=== PATIENT | female | born 1990 | race Caucasian/White ===

== ENCOUNTER 2018-01-14 09:47 | Day surgery (SDC) | payer OTHER ==
[2018-01-14 11:00] LABS: #Basophils 0.1 thou/uL (0.0-0.2); #Lymphocytes 1.2 thou/uL (1.20-3.40); #Monocytes 0.5 thou/uL (0.11-0.59); #Neutrophils 4.2 thou/uL (1.40-6.50); %Basophils 0.9 % (0.0-1.0); %Eosinophils 0.4 % (0.0-10.0); %Monocytes 8.6 % (0.0-10.0); %Neutrophils 70.2 % (42.0-75.0); Hemoglobin 11.4 g/dL (12.0-16.0); Mean Corpuscular HGB CONC 34.3 g/dL (32.0-36.0); Mean Corpuscular Hemoglobin 29.9 pg (27.0-31.0); Mean Corpuscular Volume 87.3 fl (81.0-99.0); Mean Platelet Volume 6.9 fL (7.4-10.4); Platelet Count 213 thou/uL (130-400); RBC Distribution Width 11.4 % (11.5-14.5); Red Blood Cell (RBC) Count 3.81 mill/uL (4.20-5.40); White Blood Cell (WBC) Count 5.9 thou/uL (4.8-10.8)
[2018-01-14 11:20] LABS: ALT (SGPT) 12 U/L (8-55); AST (SGOT) 11 U/L (5-34); Albumin 4.3 g/dL (3.5-5.0); Alkaline Phosphatase 54 U/L (40-150); Anion Gap 12 mmol/L (10-20); BUN (Urea Nitrogen) 13 mg/dL (7.0-18.7); Bilirubin, Total 0.6 mg/dL (0.2-1.2); Calc. Creatinine Clearance 0 mL/min (70-130); Calcium 9.5 mg/dL (7.8-10.44); Carbon Dioxide 24 mmol/L (22-29); Chloride 105 mmol/L (98-107); Estimated GFR-MDRD Greater than 90; Globulin 2.8 g/dL (2.4-3.5); Glucose 109 mg/dL (70-105); Potassium 3.6 mmol/L (3.5-5.1); Protein, Total 7.1 g/dL (6.0-8.3); Sodium 137 mmol/L (136-145)
[2018-01-14] MEDS ORDERED: CEFAZOLIN/Water 2 GM/20 ML SYRINGE ONE (11:35)
[2018-01-14] MEDS ORDERED: Bupivacaine HCl 0.5%/Epinephrine 1:200,000/PF 30 ml Vial ONE (13:27)
[2018-01-14] MEDS ORDERED: Midazolam HCl 2 mg/2 ml Vial ONE (13:30)
[2018-01-14] MEDS ORDERED: Fentanyl 250 MCG/5 ML VIAL ONE (13:30)
--- NOTE | 2018-01-14 14:04 | HP ---
DATE OF ADMISSION: 01/14/2018 REASON FOR ADMISSION: Ruptured left ectopic . HISTORY OF PRESENT ILLNESS: Ms. Peterson is a 28-year-old 3, para 2, AB 0, ectopic now 1, who w as first seen in early December with a positive UCG after an IUD removal in 2015. Ultrasound revealed a bsence of intrauterine and a left adnexal mass measuring 2.73 in greatest diameter with a g estational sac. There were no FHTs. Initial beta hCG was 14,800. The patient received 50 mg of met hotrexate per meter square on both 12/31/2017 and on 01/07/2018. She received this because her beta hCG increased to 20,700 on the and was only down to 17,700 on the . However, her beta hCG o n the was down to 9900 and the patient was not experiencing any pain. Over the past 10-12 hours , she is experience increasing left lower quadrant pain, abdominal distention and now complains of ri ght shoulder pain when lying flat. She denies nausea, vomiting. She denies syncope, dizziness or we akness. OBSTETRIC AND GYNECOLOGIC HISTORY: Primary for breech presentation in 2012 and of 9 p ound 12 ounce in 05/2015. Blood type is A positive. Negative pap. No history of STDs. PAST MEDICAL HISTORY: None. PAST SURGICAL HISTORY: . ALLERGIES: None. MEDICATIONS: None. SOCIAL HISTORY: Denies tobacco, alcohol, or drug use. FAMILY HISTORY: Noncontributory. REVIEW OF SYSTEMS: Noncontributory. PHYSICAL EXAMINATION: GENERAL: White female in no acute distress, but in obvious pain. VITAL SIGNS: Blood pressure 112/68, pulse 90, respirations 18, temperature 98.5, BMI 21. HEENT: Within normal limits. LUNGS: Clear to auscultation bilaterally. HEART: Regular rate and rhythm. ABDOMEN: Shows discomfort in all 4 quadrants, more so with the left lower quadrant. She has no dist inguishable fluid wave and no CVA tenderness. PELVIC: Vulva is without lesions. Vagina without discharge. Cervix is parous. Uterus is anteverte d and small. Bimanual exam reveals tender left adnexa. LABORATORY DATA AND X-RAY FINDINGS: Ultrasound reveals free fluid in the cul-de-sac of Vinicius and i n the areas of both the right and left adnexa. Previous ultrasound clearly revealed ectopic pregnanc y and left adnexa. IMPRESSION: Ruptured left ectopic with hemoperitoneum, stable hemodynamically at this poin t in time. Status post methotrexate at 50 mg per meter squared x2 doses. PLAN: We will admit the patient on outpatient basis to [facility] and proceed with laparoscopic left salpingectomy and evacuation of ectopic . We will administer appropriate antibiotic and DV T prophylaxis.
[2018-01-14] MEDS ORDERED: Fentanyl 100 MCG/2 ML VIAL ONE (15:13)
--- NOTE | 2018-01-14 15:23 | OP ---
DATE OF PROCEDURE: 01/14/2018 PREOPERATIVE DIAGNOSIS: Hemoperitoneum with left ectopic . POSTOPERATIVE DIAGNOSIS: Hemoperitoneum with left ectopic . PROCEDURE: Laparoscopic left distal salpingectomy. SURGEON: Cesar Lundy M.D. ANESTHESIA: General endotracheal, Arnol Burden M.D. MEDICATIONS: Two grams Ancef preincision. DVT PROPHYLAXIS: SCDs. DRAINS: Rojas to gravity. OPERATIVE FINDINGS: 1. Ruptured distal 3-4 cm left ectopic . 2. Approximately 400-500 mL hemoperitoneum. 3. Normal appearing right tube and ovary. 4. Hemostasis, clear urine, counts correct at the end of the procedure. DISPOSITION: To the recovery room in good condition. DESCRIPTION OF OPERATIVE PROCEDURE: After obtaining proper informed consent, the patient was taken t o the operating room where general endotracheal anesthesia was achieved without difficulty. Patient prepped and draped in dorsal lithotomy position in Giuliano stirrups. Weighted speculum placed in vagin a, cervix identified, grasped with single tooth tenaculum at 12 o'clock. The [employer] manipulator place d inside. Rojas catheter placed. Tenaculum and speculum removed. Paraffiner changed gloves and turne d attention to abdominal portion of procedure. Five mL of Marcaine injected at the base of umbilicus and a 10 mm skin incision made. Freeze needle placed inside abdominal cavity and confirmation entry into the peritoneal cavity via saline drop test. Insufflation was carried out with carbon dioxide m ax pressure 15. Once this was done, an 10 mm trocar was placed through the umbilicus. Confirmation entry into the peritoneal cavity was noted without trauma to the underlying viscera. Five mL of Liam bibi was injected lateral to the epigastric vessels bilaterally and 5 mm trocars placed approximately 2 cm below the level of the umbilicus. The patient was placed in steep Trendelenburg position and f indings noted the operative findings were noted. Hemoperitoneum was evacuated. Distal ectopic pregn lyubov with a distal bleeding was noted. It was elevated by grasping the fallopian tube along the anti mesenteric border using the LigaSure coagulation and transection across the fallopian tube at approxi mately its midpoint and then across the mesosalpinx underneath the distal aspect of it involving the ectopic was carried out. Once this was completed, the specimen was placed in the cul-de-sa c of Vinicius for retrieval. Suction irrigation was carried out of the surgical field and no bleeding along the mesosalpinx was noted. Ovaries noted to be normal. Right ovary and tube were inspected a nd noted to be normal. Photodocumentation of all obtained. Laparoscope was moved over to the patien t's right side and the 10 mm retrieval bag placed in the umbilical trocar. The specimen was placed i nto the retrieval bag and it was pulled up to the surface, removing the trocar. The specimen was ret rieved from the retrieval bag and the retrieval bag removed. Trocar closure set with GraNee needle a nd 0 Vicryl suture was used to reapproximate the fascia at the level of umbilicus. Abdomen was desuf flated of carbon dioxide. The other two trocars removed. Skin reapproximated x3 with a 4-0 Monocryl and Dermabond. Hulka manipulator removed. Rojas catheter removed. Patient awakened, extubated, an d taken to recovery in good condition.
[2018-01-14] MEDS ORDERED: HYDROcodone/Acetaminophen 5/325 mg Tablet ONE (17:09)
== END 2018-01-14 18:46 | disposition home or self-care (01) ==
LOC: SDC 09:47
PROVIDERS: ATTEND Obstetrics & Gynecology
PROC: 10T24ZZ Resection of Products of Conception, Ectopic, Percutaneous Endoscopic Approach (ICD-10-PCS; principal; 2018-01-14)
PROC: 0UT64ZZ Resection of Left Fallopian Tube, Percutaneous Endoscopic Approach (ICD-10-PCS; principal; 2018-01-14)
DX: O00.102 Left tubal pregnancy without intrauterine pregnancy (principal); O08.1 Delayed or excessive hemorrhage following ectopic and molar pregnancy; K66.1 Hemoperitoneum; Z79.899 Other long term (current) drug therapy; Z88.6 Allergy status to analgesic agent; Z98.891 History of uterine scar from previous surgery
CPT/HCPCS: 36415; 80053; 85025; 86850; 86900; 86901; 88305; J0131; J0670; J2250; J3010

== ENCOUNTER 2019-08-17 19:15 | Inpatient (IN) | payer BC ==
[2019-08-18] MEDS ORDERED: Promethazine HCl 25 MG/ML VIAL IM PRN ×3 (01:43→09:38)
[2019-08-18] MEDS ORDERED: HYDROcodone/Acetaminophen 5/325 mg Tablet PO PRN ×3 (01:43→09:38)
[2019-08-18] MEDS ORDERED: Lidocaine 1% (PF) 30 ML VIAL SC PRN (01:43)
[2019-08-18] MEDS ORDERED: Butorphanol Tartrate 1 MG/ML VIAL SLOW IVP PRN (01:43)
[2019-08-18] MEDS ORDERED: hydrALAZINE 20 MG/ML VIAL SLOW IVP PRN ×2 (01:43→09:38)
[2019-08-18] MEDS ORDERED: Ondansetron PF 4 MG/2 ML Vial IVP PRN ×3 (01:43→09:38)
[2019-08-18] MEDS ORDERED: NS / Oxytocin 40 units/1000ml 1,000 ML IV PRN (01:43)
[2019-08-18 01:47] VITALS: BMI 27.0
[2019-08-18] MEDS ORDERED: Lactated Ringer's 1,000 ML IV SCH ×2 (02:00→03:00)
[2019-08-18] MEDS ORDERED: NS w/ Oxytocin 10 units 500 ML IV SCH (02:00)
[2019-08-18 02:26] LABS: Mean Corpuscular HGB CONC 34.7 g/dL (32.0-36.0); Mean Corpuscular Hemoglobin 30.1 pg (27.0-31.0); Mean Corpuscular Volume 86.7 fL (78.0-98.0); Mean Platelet Volume 7.5 fL (7.4-10.4); Platelet Count 178 thou/uL (130-400); RBC Distribution Width 12.3 % (11.5-14.5); White Blood Cell (WBC) Count 8.5 thou/uL (4.8-10.8)
[2019-08-18] MEDS ORDERED: Fentanyl 4 mcg/Bup 0.1% Cadd 100 ML ONE (02:53)
[2019-08-18 03:04] LABS: HBSAg Index 0.33 S/CO (0-0.99); Hep B Surf Ag Non-Reactive S/CO (NonReactive)
[2019-08-18] MEDS ORDERED: Bupivacaine 0.5% 10 ML VIAL ONE (03:15)
[2019-08-18] MEDS ORDERED: Fentanyl 100 MCG/2 ML VIAL ONE (03:15)
[2019-08-18] MEDS ORDERED: Acetaminophen 325 MG TAB PO PRN (03:48)
[2019-08-18] MEDS ORDERED: Lactated Ringer's 500 ML IV PRN (03:48)
[2019-08-18] MEDS ORDERED: Naloxone HCl 0.4 mg/ml Vial IVP PRN ×2 (03:48)
[2019-08-18] MEDS ORDERED: diphenhydrAMINE 50 MG/ML VIAL IVP PRN (03:48)
[2019-08-18] MEDS ORDERED: ePHEDrine/0.9% NaCl/PF SYRINGE 50 mg/10 ml SLOW IVP PRN (03:48)
[2019-08-18] MEDS ORDERED: Fentanyl 4 mcg/Bupivacaine 0.1% Cassette 100 ML EPIDURAL SCH (04:00)
[2019-08-18] MEDS ORDERED: Communication Order-Pharmacy FS SCH (04:00)
[2019-08-18] MEDS ORDERED: Bupivacaine 0.25% 10 ML VIAL EPIDURAL SCH (04:05)
[2019-08-18] MEDS ORDERED: Fentanyl 100 MCG/2 ML VIAL I-THECAL SCH (04:05)
--- NOTE | 2019-08-18 05:20 | PDOC.OPDEL ---
OB Operative/Delivery Note Delivery Dr/Surgeon: Preston Pre-Delivery Diagnosis: active labor Procedure/Post Delivery Dx: vaginal delivery after CS Weeks gestation: 40 Anesthesia: epidural - Additional Findings/Plan Placenta delivered: spontaneous Repaired Obstetrical Laceration: 2nd degree Estimated blood loss: 300 cc Compilations/Other Findings: Rapid progress with precip delivery of viable female. Apgars 9/9. 2* MLE repaired in layers. To recover in L&D. Post delivery plan: routine recovery
[2019-08-18 05:52] LABS: Syphilis Antibody Nonreactive (Nonreactive); Syphilis Antibody Index 0.07 S/CO (<1.00 Non-Reactive)
[2019-08-18] MEDS ORDERED: Benzocaine-Menthol 82.5 ML CAN TOP PRN (09:38)
[2019-08-18] MEDS ORDERED: Zolpidem Tartrate 5 MG TAB PO PRN (09:38)
[2019-08-18] MEDS ORDERED: Milk Of Magnesia 30 ML UDCUP PO PRN (09:38)
[2019-08-18] MEDS ORDERED: Bisacodyl 10 MG SUPP PR PRN (09:38)
[2019-08-18] MEDS ORDERED: Adacel (T-DAP) 0.5 ML SYRINGE IM ONE (09:38)
[2019-08-18] MEDS ORDERED: NS / Oxytocin 40 units/1000ml 1,000 ML IV SCH (09:38)
[2019-08-18] MEDS: Prenatal Vitamin 1 TAB PO SCH (10:00)
[2019-08-18] MEDS: Docusate Calcium (SURFAK) 240 MG CAP PO SCH ×2 (10:00→21:39)
[2019-08-18] MEDS: HYDROcodone/Acetaminophen 5/325 mg Tablet PO PRN ×3 (12:44→23:11)
[2019-08-18] MEDS: Ferrous Sulfate 325 MG TAB PO SCH (16:55)
[2019-08-18] MEDS: Ibuprofen 800 MG TAB PO SCH (21:39)
[2019-08-19] MEDS: Ibuprofen 800 MG TAB PO SCH (05:49)
--- NOTE | 2019-08-19 07:17 | PDOC.PP ---
Post Progress Note Post Day #: 1 PO intake tolerated: yes Flatus: yes Ambulation: yes Vital Signs (12 hours) Temp Pulse Resp BP Pulse Ox 08/19/19 04:42 97.8 F 70 18 98/55 L 08/18/19 23:11 98.5 F 77 18 118/74 08/18/19 19:21 97.7 F 84 16 117/61 97 Weight Weight 183 lb - Physical Examination General: NAD Cardiovascular: no m/r/g, RRR Respiratory: clear to auscultation bilaterally Abdominal: + bowel sounds, lochia Extremities: negative homans (B) Neurological: no gross focal deficits Psychiatric: A&Ox3, normal affect Result Diagrams: 08/18/19 02:00 Additional Labs: Post Labs Blood Type A POSITIVE 08/18/19 02:00 Hep Bs Antigen Non-Reactive S/CO (NonReactive) 08/18/19 02:00 - Assessment/Plan doing well desires dc home
[2019-08-19 07:49] VITALS: BP 106/64; TEMP 97.6
[2019-08-19] MEDS: Ferrous Sulfate 325 MG TAB PO SCH (09:41)
[2019-08-19] MEDS: Prenatal Vitamin 1 TAB PO SCH (09:42)
[2019-08-19] MEDS: Docusate Calcium (SURFAK) 240 MG CAP PO SCH (09:42)
== END 2019-08-19 12:45 | disposition home or self-care (01) | DRG 807 ==
LOC: L&D 08-18 01:16 → 3SW 08-18 08:32
PROVIDERS: ADMIT Obstetrics & Gynecology; ATTEND Obstetrics & Gynecology
PROC: 10E0XZZ Delivery of Products of Conception, External Approach (ICD-10-PCS; principal; 2019-08-18)
PROC: 0KQM0ZZ Repair Perineum Muscle, Open Approach (ICD-10-PCS; 2019-08-18)
DX: O34.211 Maternal care for low transverse scar from previous cesarean delivery (principal); Z37.0 Single live birth; O62.3 Precipitate labor; O70.1 Second degree perineal laceration during delivery; Z3A.40 40 weeks gestation of pregnancy; O48.0 Post-term pregnancy; N85.8 Other specified noninflammatory disorders of uterus
CPT/HCPCS: 36415; 51702; 85027; 86780; 86850; 86900; 86901; 87340; J3010; J3490